=== PATIENT | female | born 1975 | race Caucasian/White ===

== ENCOUNTER 2017-04-08 11:23 | Emergency (ER) | payer BC ==
[2017-04-08] MEDS ORDERED: ACETAMINOPHEN 500 MG TABLET PO ONE (11:30)
--- NOTE | 2017-04-08 11:35 | Emergency Department Record ---
History of Present Illness - General Chief complaint: Extremity Problem Stated complaint: LEG INJURY Time Seen by Provider: 04/08/17 11:29 Source: Patient Mode of Arrival: Ambulatory Limitations: No limitations - History of Present Illness Initial comments: 42 yo female presents left foot and ankle pain after a fall on steps. She mis- stepped and turned her ankle. She has lateral foot and ankle pain. No numbness or tingling. Intact skin. No other injuries. No knee or hip pain. MD Complaint: Extremity pain, Extremity swelling, Joint pain, Joint swelling -: Hour(s) (2) Location: Left, Ankle, Foot Quality: Aching Consistency: Constant Improves with: Elevation, Immobilization Worsens with: Exertion, Walking, Weight bearing Associated Symptoms: Denies other symptoms - Related Data Home Medications Medication Instructions Recorded Confirmed Last Taken Albuterol Sulfate [Proair Hfa] 1 - 2 puff IH Q4HR PRN 10/08/15 04/08/17 Unknown Amitriptyline HCl [Elavil] 100 mg PO QHS 10/08/15 04/08/17 10/06/15 Aspirin [Aspirin EC] 81 mg PO DAILY 10/08/15 04/08/17 10/06/15 Celecoxib 200 mg PO BID 10/08/15 04/08/17 10/08/15 Dicyclomine HCl [Bentyl] 20 mg PO BID 10/08/15 04/08/17 10/06/15 Ergocalciferol (Vitamin D2) 50,000 unit PO WEEKLY 10/08/15 04/08/17 10/01/15 [Vitamin D2] Fluticasone/Salmeterol [Advair 1 each IH BID 10/08/15 04/08/17 10/06/15 100-50 Diskus] Hydroxychloroquine Sulfate 400 mg PO DAILY 10/08/15 04/08/17 10/06/15 [Plaquenil] Lorazepam 0.5 mg PO Q6HR PRN 10/08/15 04/08/17 10/06/15 Ondansetron [Zofran Odt] 4 mg PO Q8HR 10/08/15 04/08/17 10/08/15 Pantoprazole Sodium [Protonix] 40 mg PO BID 10/08/15 04/08/17 10/06/15 Pilocarpine HCl [Salagen] 5 mg PO BID 10/08/15 04/08/17 10/06/15 Prednisone 5 mg PO DAILY 10/08/15 04/08/17 10/08/15 Promethazine HCl [Phenergan] 25 mg PO ASDIR 10/08/15 04/08/17 Unknown Sumatriptan [Imitrex] 20 mg IM ASDIR PRN 10/08/15 04/08/17 10/08/15 Topiramate [Topamax] 75 mg PO BID 10/08/15 04/08/17 10/06/15 Tramadol HCl [Ultram] 50 mg PO Q8H PRN 10/08/15 04/08/17 10/07/15 Trazodone HCl 225 mg PO QHS 10/08/15 04/08/17 10/07/15 Methocarbamol [Robaxin] 500 mg PO TID PRN 10/09/15 04/08/17 Unknown Hydroxyzine Pamoate [Vistaril] 50 mg PO ASDIR 04/08/17 04/08/17 Unknown Indomethacin 75 mg PO BID 04/08/17 04/08/17 Unknown Ketorolac Tromethamine [Ketorolac 30 mg IM ASDIR PRN 04/08/17 04/08/17 Unknown Tromethamine] Rosuvastatin Calcium [Crestor] 40 mg PO DAILY 04/08/17 04/08/17 Unknown Previous Rx's Medication Instructions Recorded Cyclobenzaprine HCl [Flexeril] 5 mg PO TID PRN #30 tablet 10/09/15 Hydrocodone/Acetaminophen [[place] 2 tab PO Q4HR PRN #40 tab 10/09/15 5mg/325mg] Prednisone [Prednisone 10Mg] 20 mg PO DAILY #60 tab 10/09/15 Hydrocodone/Acetaminophen [[place] 1 each PO Q6H #25 tablet 04/08/17 5-325 Tablet] Allergies Allergy/AdvReac Type Severity Reaction Status Date / Time Penicillins Allergy unknown Verified 10/08/15 11:55 levofloxacin [From Levaquin] AdvReac unknown Verified 10/08/15 11:55 metoclopramide HCl AdvReac unknown Verified 10/08/15 11:55 [From Reglan] Review of Systems Constitutional: Denies: Chills, Fever, Weakness Eyes: Denies: Eye discharge ENT: Denies: Congestion, Throat pain Respiratory: Denies: Cough Cardiovascular: Denies: Chest pain, Syncope Endocrine: Denies: Fatigue Gastrointestinal: Denies: Abdominal pain, Diarrhea, Nausea, Vomiting Genitourinary: Denies: Dysuria, Urgency Musculoskeletal: Reports: Arthralgia, Joint swelling Skin: Denies: Bruising, Change in color, Rash Neurological: Denies: Headache Psychiatric: Denies: Anxiety Hematological/Lymphatic: Denies: Easy bleeding, Easy bruising, Swollen glands Past Medical History - SOCIAL HISTORY Smoking Status: Never smoker - RESPIRATORY Hx Respiratory Disorders: Yes Hx Asthma: Yes - CARDIOVASCULAR Hx Cardio Disorders: No - NEURO Hx Neuro Disorders: Yes Hx Headaches: Yes Hx Neuropathy: Yes Comment:: lupus - GI Hx GI Disorders: No - Hx Genitourinary Disorders: Yes Comment:: adrenal insufficiency - ENDOCRINE Hx Endocrine Disorders: No - MUSCULOSKELETAL Hx Musculoskeletal Disorders: No - PSYCH Hx Psych Problems: Yes Hx Anxiety: Yes - HEMATOLOGY/ONCOLOGY Hx Hematology/Oncology Disorders: No Physical Exam - General General Appearance: Alert, Oriented x3, Cooperative, No acute distress Limitations: No limitations - Head Head exam: Atraumatic, Normocephalic, Normal inspection - Eye Eye exam: Normal appearance - ENT ENT exam: Normal exam Ear exam: Normal external inspection Nasal Exam: Normal inspection Mouth exam: Normal external inspection - Neck Neck exam: Normal inspection - Respiratory Respiratory exam: Normal lung sounds bilaterally. negative: Respiratory distress - Cardiovascular Cardiovascular Exam: Regular rate, Normal rhythm, Normal heart sounds Peripheral Pulses: 2+: Radial (L) - Rectal Rectal exam: Deferred - exam: Deferred - Extremities Extremities exam: Normal inspection, Full ROM, Normal capillary refill, Tenderness. negative: Joint swelling Image of Feet: 1 - tender lateral foot and lateral ankle, no visible swelling, intact skin, pain with ROM without deformity, intact CR and pulses, Achilles is intact to palpation - Back Back exam: Reports: Full ROM. Denies: Muscle spasm, Paraspinal tenderness, Tenderness - Neurological Neurological exam: Alert, Normal gait, Oriented X3 - Psychiatric Psychiatric exam: Normal affect, Normal mood - Skin Skin exam: Dry, Intact, Normal color, Warm Course - Reevaluation(s) Reevaluation #1: The patient was seen and examined XR ordered 04/08/17 11:34 Reevaluation #2: XR demonstrated a small 10mm fracture at the talus She will be splinted and referred to the specialty clinic for orthopedics 04/08/17 13:10 Disposition Disposition: Discharge Clinical Impression: Fracture, talus closed Disposition: Home, Self-Care Condition: (1) Good Instructions: Foot Fracture in Adults (ED) Additional Instructions: No weight bearing. Use the Crutches. Follow up as scheduled with Dr Martin Prescriptions: Hydrocodone/Acetaminophen [[place] 5-325 Tablet] 1 each PO Q6H #25 tablet Referrals: ROMAN MARTIN [DOCTOR OF OSTEOPATH] - [facility] [Provider Group] Forms: Patient Portal Access Time of Disposition: 13:14
[2017-04-08] MEDS ORDERED: HYDROMORPHONE HCL 1 MG/ML CPJ IM ONE (13:18)
--- NOTE | 2017-04-12 04:19 | RADIOLOGY REPORT ---
DATE: 04/08/2017 at 1251 hours. EXAM: THREE-VIEW, LEFT FOOT. HISTORY: FALL, LATERAL LEFT ANKLE PAIN. TECHNIQUE: Three views of the left foot were obtained. FINDINGS: A 10-mm probable chip fracture fragment at the left talar neck region dorsally. No additional fracture of the left foot. No hallux valgus. IMPRESSION: A 10 MM MINIMALLY DISPLACED CHIP FRACTURE FRAGMENT, DORSAL ASPECT OF THE LEFT TALAR NECK. JOB NUMBER: [id number] MTDD
--- NOTE | 2017-04-12 04:22 | RADIOLOGY REPORT ---
DATE: 04/08/2017 at 1251 hours. EXAM: THREE-VIEW, LEFT ANKLE. HISTORY: FALL, LATERAL LEFT ANKLE PAIN. COMPARISON: None. ENCOUNTER: Initial. TECHNIQUE: Three views of the left ankle were obtained. FINDINGS: Corticated ossicle near the tip of the lateral malleolus consistent with old post-traumatic ossicle. The ankle mortis is intact. There is an acute , minimally displaced chip fracture at the talar neck measuring 10 mm. IMPRESSION: 1. ACUTE 10 MM MINIMALLY DISPLACED CHIP FRACTURE NEAR THE TALAR NECK OF THE LEFT ANKLE. 2. LEFT ANKLE MORTIS IS INTACT. JOB NUMBER: [id number] MTDD
== END 2017-04-08 13:46 | disposition home or self-care (01) ==
LOC: ER 11:23
DX: S92.192A Other fracture of left talus, initial encounter for closed fracture (principal); W17.89XA Other fall from one level to another, initial encounter; Y93.89 Activity, other specified; Y92.019 Unspecified place in single-family (private) house as the place of occurrence of the external cause
CPT/HCPCS: 96372; 99283; J1170

== ENCOUNTER 2018-01-21 18:18 | Emergency (ER) | payer BC ==
[2018-01-21] MEDS ORDERED: HYDROCODONE/APAP 7.5/325MG TABLET PO ONE (18:33)
--- NOTE | 2018-01-21 18:38 | Emergency Department Record ---
History of Present Illness - General Chief Complaint: Ankle/Foot Injury Stated Complaint: FOOT INURY Source: Patient Mode of Arrival: Wheelchair Limitations: No limitations - History of Present Illness Initial Comments: 43 yo female presents to ED for evaluation of pain and swelling to the mid- right foot laterally following a slip and fall injury approximately 6 hours ago. Patient reports inability to bear weight on the foot without significant pain symptoms, also reports previous talus fracture 1 year ago with similar symptoms and mechanism of injury. Patient reports abrasions to the knees, but denies joint pain following her fall. Patient reports history of connective tissue disorders as well. MD Complaint: Foot injury Onset/Timin -: Hour(s) Injury: Foot: Right Type of Injury: Blunt Place: Other (restaurant) Severity: Severe Improves With: Nothing Worsens With: Movement Context: Fall Associated Symptoms: Unable to bear weight Treatments Prior to Arrival: Cold therapy - Related Data Home Medications Medication Instructions Recorded Confirmed Last Taken Hydrocortisone [Cortef] 5 mg PO ASDIR 01/21/18 01/21/18 01/21/18 Previous Rx's Medication Instructions Recorded Cyclobenzaprine HCl [Flexeril] 5 mg PO TID PRN #30 tablet 10/09/15 Hydrocodone/Acetaminophen [[place] 1 each PO Q6H #25 tablet 04/08/17 5-325 Tablet] Allergies Allergy/AdvReac Type Severity Reaction Status Date / Time Penicillins Allergy unknown Verified 01/21/18 18:24 levofloxacin [From Levaquin] AdvReac unknown Verified 01/21/18 18:24 metoclopramide HCl AdvReac unknown Verified 01/21/18 18:24 [From Reglan] Review of Systems Constitutional: Denies: Chills, Fever, Malaise, Night sweats Eyes: Denies: Eye discharge, Eye pain ENT: Denies: Congestion, Ear pain, Epistaxis Respiratory: Denies: Cough, Dyspnea Cardiovascular: Denies: Chest pain, Dyspnea on exertion Endocrine: Denies: Fatigue, Heat or cold intolerance Gastrointestinal: Denies: Abdominal pain, Nausea, Vomiting Genitourinary: Denies: Incontinence, Retention Musculoskeletal: Reports: Arthralgia, Joint swelling. Denies: Back pain, Gout Skin: Reports: Bruising. Denies: Change in color Neurological: Denies: Confusion, Headache Psychiatric: Denies: Anxiety Hematological/Lymphatic: Denies: Anemia, Blood Clots Past Medical History - SOCIAL HISTORY Smoking Status: Never smoker - RESPIRATORY Hx Respiratory Disorders: Yes Hx Asthma: Yes - CARDIOVASCULAR Hx Cardio Disorders: No - NEURO Hx Neuro Disorders: Yes Hx Headaches: Yes Hx Neuropathy: Yes Comment:: lupus - GI Hx GI Disorders: No - Hx Genitourinary Disorders: Yes Comment:: adrenal insufficiency - ENDOCRINE Hx Endocrine Disorders: No - MUSCULOSKELETAL Hx Musculoskeletal Disorders: No - PSYCH Hx Psych Problems: Yes Hx Anxiety: Yes - HEMATOLOGY/ONCOLOGY Hx Hematology/Oncology Disorders: No Physical Exam - General General Appearance: Alert, Oriented x3, Cooperative, Moderate distress Limitations: No limitations - Head Head exam: Atraumatic, Normocephalic, Normal inspection Head exam detail: negative: Abrasion, Contusion, Schumacher's sign, General tenderness, Hematoma, Laceration - Eye Eye exam: Normal appearance. negative: Conjunctival injection, Periorbital swelling, Periorbital tenderness, Scleral icterus - ENT Ear exam: negative: Auricular hematoma, Auricular trauma Nasal Exam: negative: Active bleeding, Discharge, Dried blood, Foreign body Mouth exam: negative: Drooling, Laceration, Muffled voice, Tongue elevation - Neck Neck exam: Normal inspection. negative: Meningismus, Tenderness - Respiratory Respiratory exam: Normal lung sounds bilaterally. negative: Respiratory distress, Rhonchi, Stridor, Wheezes - Cardiovascular Cardiovascular Exam: Regular rate, Normal rhythm, Normal heart sounds Peripheral Pulses: 3+: Dorsalis Pedis (L) - GI/Abdominal GI/Abdominal exam: Soft. negative: Distended, Rebound, Rigid, Tenderness - Rectal Rectal exam: Deferred - exam: Deferred - Extremities Extremities exam: Tenderness, Other (TTP and STS over the lateral aspect of the right foot, strong DPP present. No pain over the ankle on examination.). negative: Calf tenderness, Pedal edema - Back Back exam: Denies: CVA tenderness (R), CVA tenderness (L) - Neurological Neurological exam: Alert, Normal gait, Oriented X3 - Psychiatric Psychiatric exam: Normal affect, Normal mood - Skin Skin exam: Abrasion (Knees bilaterally) Type of lesion: abrasion Course - Reevaluation(s) Reevaluation #1: 01/21/18 19:44 CT Right foot: Several small calcifications ooverlying the tarsal bones, likely representing acute chip fractures. Patient was updated on her radiology results, will place in don-ramírez boot with no weight bearing instructions (has crutches) and instructions to follow-up with Dr. Zavala (her head of ict) next week. Patient agrees with the plan of care as discussed and appears stable for discharge at this time. Disposition Disposition: Discharge Clinical Impression: Fracture of tarsal bone Qualifiers: Encounter type: initial encounter Tarsal bone: unspecified tarsal bone Fracture type: closed Fracture alignment: nondisplaced Laterality: right Qualified Code(s): S92.201A - Fracture of unspecified tarsal bone(s) of right foot, initial encounter for closed fracture Disposition: Home, Self-Care Condition: (2) Stable Instructions: Foot Fracture in Adults (ED) Additional Instructions: Return to ED if your symptoms worsen or if you have any concerns. Don ramírez boot as directed, crutches as directed. Continue your [place] as needed for pain symptoms. Follow-up with Dr. Zavala in 1-3 days as directed. Forms: Patient Portal Access Time of Disposition: 19:47 Quality - Quality Measures Quality Measures: N/A - Blood Pressure Screening Does Patient Have Any of the Following: No Blood Pressure Classification: Hypertensive Reading Systolic Measurement: 133 Diastolic Measurement: 96 Screening for High Blood Pressure: < First Hypertensive BP, F/U Documented > [ G8950] First Hypertensive Follow-up Interventions: Referral to alternative/primary care provider.
--- NOTE | 2018-01-22 18:12 | CT SCAN REPORT ---
EXAM: CT SCAN LOWER EXTREMITY WO CONTRAST HISTORY: PATIENT FELL WITH RIGHT FOOT INJURY TODAY. TECHNIQUE: Axial CT scan of the right foot performed without IV contrast. Postprocessing at an independent workstation was performed with multiplanar 2D as well as 3D volume-rendered series. COMPARISON: I have no prior right foot CT or right foot plain-film series with which to compare. ENCOUNTER: Initial. FINDINGS: The visualized distal fibula and tibia appear intact. There is a slightly curvilinear calcification approximately 9 mm in length located adjacent to the distal aspect of the dorsal margin of the talus, which is likely a small avulsion fracture fragment. This appears displaced slightly medially. Just distal to this, there is a small slightly curvilinear calcific density approximately 7.3 mm in size along the dorsal aspect of the proximal tarsal navicular, which is also consistent with a small avulsion fracture that is essentially undisplaced. In addition, there is a very tiny calcific hiral along the lateral border of the tarsal navicular, which is probably also a tiny avulsion fracture. Just posterior to this, there is yet another linear calcific density about 7.7 mm in length, which may also be a small avulsion fracture arising from the region of the calcaneocuboid articulation. There is another tiny linear calcification along the lateral border of the distal calcaneus, which again is likely a small avulsion fracture fragment. There is another very tiny calcification lateral to the mid portion of the cuboid bone medially. No definite additional fractures of the foot identified. No actual dislocation identified. There probably is some soft tissue swelling along the lateral aspect of the foot, particularly at the level of the distal calcaneus and the cuboid. Very small plantar calcaneal spur. IMPRESSION: THERE ARE NUMEROUS SMALL, SUBCENTIMETER IN LENGTH, CALCIFIC FLECKS ABOUT SEVERAL OF THE TARSAL BONES, DESCRIBED IN DETAIL ABOVE. SEVERAL OF THESE, BECAUSE OF THEIR SMALL SIZE, ARE VERY DIFFICULT TO CHARACTERIZE TO AGE BUT THERE DOES APPEAR TO BE SOME SOFT TISSUE SWELLING ALONG THE LATERAL ASPECT AND SLIGHTLY ALONG THE DORSAL ASPECT OF THE FOOT AT THE LEVEL OF THE TARSALS WELL AND AT LEAST SOME OF THESE ARE PROBABLY ACUTE. IF CLINICALLY WARRANTED, FOLLOW-UP MRI COULD BE PERFORMED TO EVALUATE FOR ANY ASSOCIATED MARROW EDEMA INVOLVING THESE BONES TO SUGGEST AN ACUTE INJURY. COMPARISON TO ANY PLAIN-FILM STUDIES MIGHT BE USEFUL IN DETERMINING IF AT LEAST SOME OF THESE LARGER CALCIFIC SLIVERS OF BONE HAVE BEEN PRESENT PREVIOUSLY. JOB NUMBER: [id number] [facility]
== END 2018-01-21 20:09 | disposition home or self-care (01) ==
LOC: ER 18:18
DX: S92.201A Fracture of unspecified tarsal bone(s) of right foot, initial encounter for closed fracture (principal); S80.212A Abrasion, left knee, initial encounter; S80.211A Abrasion, right knee, initial encounter; W10.9XXA Fall (on) (from) unspecified stairs and steps, initial encounter
CPT/HCPCS: 99283

== ENCOUNTER 2018-11-16 15:27 | Emergency (ER) | payer MEDICAID, BC ==
[2018-11-16] MEDS ORDERED: 0.9 % SODIUM CHLORIDE 1,000 ML BAG IV ONE (16:07)
[2018-11-16] MEDS ORDERED: DIPHENHYDRAMINE HCL 50 MG/ML VIAL IVP ONE (16:07)
[2018-11-16] MEDS ORDERED: METOCLOPRAMIDE HCL 10 MG/2 ML VIAL IVP ONE (16:07)
[2018-11-16] MEDS ORDERED: KETOROLAC 30 MG/ML VIAL IVP ONE (16:10)
--- NOTE | 2018-11-16 16:14 | Emergency Department Record ---
History of Present Illness - General Chief Complaint: Headache Migraine Stated Complaint: HEADACHE Time Seen by Provider: 11/16/18 15:46 Source: Patient Mode of Arrival: Ambulatory Limitations: No limitations - History of Present Illness Initial Comments: The patient is here due to a typical migraine GOODMAN for the last 10 hours. She states she woke up at 5:30 due to the pain and then it gradually worsened. The pain is in the occipital area and does radiate around the top of the head. She has had significant photophobia, with nausea and vomiting. The patient has a LONG hx of similar GOODMAN's and does have multiple medicines at home for it but they did not help. She has had GOODMAN's this severe in the past and has needed to come to the ER from time to time. There has been no hx of fever, chills, neck pain, balance issues, or arm or leg numbness or weakness. MD Complaint: Headache Onset/Timin -: Hour(s) Onset Description: Gradual Location: Left, Occipital, Right Severity: Severe Severity scale (1-10): 8 Quality: Aching, Throbbing, Similar to previous headaches, Other Consistency: Constant Improves With: Nothing Worsens With: Light, Other Associated Symptoms: Nausea, Photophobia, Vomiting Other Symptoms: Eye pain/redness Treatments Prior to Arrival: Migraine medication Treatment Prior to Arrival Comment:: took norco 5/325mg at 1100, toradol 50mg IM injection at 0930 - Symptoms of Stroke Onset of Symptoms Date: 11/16/18 Onset of Symptoms Time: 05:30 - Related Data Home Medications Medication Instructions Recorded Confirmed Last Taken Bupropion HCl [Wellbutrin Xl] 150 tab PO DAILY 11/16/18 11/16/18 11/16/18 Hydrocodone/Acetaminophen [[place] 1 each PO Q6H PRN 11/16/18 11/16/18 11/16/18 5-325 Tablet] Previous Rx's Medication Instructions Recorded Cyclobenzaprine HCl [Flexeril] 5 mg PO TID PRN #30 tablet 10/09/15 Allergies Allergy/AdvReac Type Severity Reaction Status Date / Time Penicillins Allergy unknown Verified 11/16/18 15:32 levofloxacin [From Levaquin] AdvReac unknown Verified 11/16/18 15:32 metoclopramide HCl AdvReac unknown Verified 01/10/19 15:32 [From Reglan] Travel Screening - Travel/Exposure Within Last 30 Days Have you traveled within the last 30 days?: Yes Location Detail:: went to [place] - Travel/Exposure Within Last Year Have you traveled outside the [place] in the last year?: No - Additonal Travel Details Have you been exposed to anyone with a communicable illness?: No - Travel Symptoms Symptom Screening: None Review of Systems Constitutional: Denies: Chills, Fever Eyes: Denies: Eye discharge ENT: Denies: Congestion Respiratory: Denies: Cough, Dyspnea Past Medical History - SOCIAL HISTORY Smoking Status: Former smoker Alcohol Use: Rare Drug Use: None - RESPIRATORY Hx Respiratory Disorders: Yes Hx Asthma: Yes - CARDIOVASCULAR Hx Cardio Disorders: No - NEURO Hx Neuro Disorders: Yes Hx Headaches: Yes Hx Neuropathy: Yes Comment:: lupus - GI Hx GI Disorders: No - Hx Genitourinary Disorders: Yes Comment:: adrenal insufficiency - ENDOCRINE Hx Endocrine Disorders: No - MUSCULOSKELETAL Hx Musculoskeletal Disorders: No - PSYCH Hx Psych Problems: Yes Hx Anxiety: Yes Hx Depression: Yes - HEMATOLOGY/ONCOLOGY Hx Hematology/Oncology Disorders: No Family Medical History Any Significant Family History?: Yes Hx Cancer: Father Hx Dementia: Mother Hx Diabetes: Grandparents Hx HTN: Father, Mother Physical Exam - General General Appearance: Alert, Oriented x3, Cooperative, No acute distress - Head Head exam: Atraumatic, Normocephalic, Normal inspection - Eye Eye exam: Normal appearance, PERRL, EOMI. negative: Conjunctival injection - ENT Throat exam: Normal inspection. negative: Tonsillar erythema, Tonsillar exudate - Neck Neck exam: Normal inspection, Full ROM. negative: Meningismus (the neck is very supple.), Tenderness - Respiratory Respiratory exam: Normal lung sounds bilaterally. negative: Respiratory distress - Cardiovascular Cardiovascular Exam: Regular rate, Normal rhythm, Normal heart sounds - GI/Abdominal GI/Abdominal exam: Soft, Normal bowel sounds. negative: Tenderness - Extremities Extremities exam: Normal inspection, Full ROM, Normal capillary refill. negative: Tenderness - Neurological Neurological exam: Alert, Normal gait, Oriented X3, Other (Neg Drift and [place].). negative: Abnormal gait, Altered, Motor sensory deficit Course Vital Signs 11/16/18 15:44 Temperature 98.2 F Pulse Rate 79 Respiratory 18 Rate Blood Pressure 153/101 Pulse Ox 99 - Reevaluation(s) Reevaluation #1: The patient states the pain is improved but is still nauseated. We will try some Zofran for nausea. 11/16/18 17:21 Reevaluation #2: The patient is doing a lot better at this time. Her pain is almost completely resolved and her nausea is gone. She is ready for home and will go home to sleep. Her speech is clear and she is neurologically intact. 11/16/18 17:39 Reevaluation #3: The patient is doing much better at discharge and her pain is completely resolved. She feels much better and is very happy and cooperative. 11/16/18 18:00 Medical Decision Making - Data Complexity MDM Data: Labs Ordered and/or Reviewed - Lab Data Result diagrams: 11/16/18 16:22 11/16/18 16:22 Disposition Disposition: Discharge Clinical Impression: Migraine Qualifiers: Migraine type: unspecified Status migrainosus presence: without status migrainosus Intractability: not intractable Qualified Code(s): G43.909 - Migraine, unspecified, not intractable, without status migrainosus Disposition: Home, Self-Care Condition: (2) Stable Instructions: Migraine Headache (ED) Additional Instructions: Please continue your regular medicines at home and drink plenty of fluids. Please limit your NSAIDS for 1-2 weeks and see your family doctor or Headache Specialist if the pain returns. Return to the ER for any worsening pain, fever, or vomiting. Forms: Patient Portal Access Time of Disposition: 17:42 Quality - Quality Measures Quality Measures: N/A, Headache (All Ages) - Headache: Neuroimaging Quality Measure: Measure #419: Overuse of Neuroimaging ICD10 Codes Entered: Yes View Detail: Yes Neurological Exam: Patient had a normal neurological exam. [G9535] Headache: Use of Neuroimaging: < CTA, CT, MRA or MRI was NOT ordered > [G9534] - Blood Pressure Screening View Details: Yes Does Patient Have Any of the Following: No Blood Pressure Classification: Pre-Hypertensive BP Reading Systolic Measurement: 131 Diastolic Measurement: 83 Screening for High Blood Pressure: < Pre-Hypertensive BP, F/U Documented > [ G8950] Pre-Hypertensive Follow-up Interventions: Referral to alternative/primary care provider.
[2018-11-16 16:40] LABS: BASO % 0.5 % (0-6); GRAN % 69.1 % (47-80); HEMATOCRIT 37.5 % (35.0-47.0); HEMOGLOBIN 12.6 gm/dl (11.6-16.0); MEAN CELL VOLUME 88.9 fl (81-97); MEAN CORPUSCULAR HEMOGLOBIN 29.9 pg (27-33); MEAN CORPUSCULAR HGB CONC 33.6 g/dl (32-36); MEAN PLATELET VOLUME 10.5 fl (7.4-10.4); MONO % 5.4 % (0-9); PLATELET COUNT 245 K/uL (130-400); RED BLOOD COUNT 4.22 M/uL (3.80-5.40); RED CELL DISTRIBUTION WIDTH 12.1 % (11.5-14.5); WHITE BLOOD COUNT W/O DIFF 6.1 K/uL (4.2-12.2)
[2018-11-16 16:53] LABS: BILIRUBIN,TOTAL 0.3 mg/dL (0.2-1.0); CREATININE 1.1 mg/dL (0.5-0.9)
[2018-11-16 16:54] LABS: TOTAL PROTEIN 6.3 g/dL (6.6-8.7)
[2018-11-16 16:59] LABS: ALB/GLOB RATIO 1.7 (1.1-1.8)
[2018-11-16] MEDS ORDERED: HYDROMORPHONE HCL 2 MG/ML VIAL IVP ONE (17:05)
[2018-11-16] MEDS ORDERED: ONDANSETRON HCL IV 4 MG/2 ML VIAL IVP ONE (17:19)
== END 2018-11-16 18:02 | disposition home or self-care (01) ==
LOC: ER 15:27
DX: G43.009 Migraine without aura, not intractable, without status migrainosus (principal); R11.2 Nausea with vomiting, unspecified; H53.149 Visual discomfort, unspecified; Z87.891 Personal history of nicotine dependence
CPT/HCPCS: 99284 ×2; 96374; 96375; 96361; 85025; 80053; J1885; J2405; J1170; J1200; J2765; J7030